=== PATIENT | male | born 1965 | race African-American/Black ===

== ENCOUNTER 2019-02-11 23:24 | Emergency (ER) | payer OTHER ==
[~2019-02-11] VITALS: Ht 182.9 cm; Wt 88.5 kg
[~2019-02-11 23:24] MED LIST: LISINOPRIL-HCT1 EAC1 PO
[2019-02-12 00:17] LABS: PLATELET COUNT 185 thou/uL (150-400)
[2019-02-12 00:19] LABS: ANION GAP 8 mmol/L (7-16); BUN 18 mg/dL (7-18); CHLORIDE 101 mmol/L (98-107); CO2 27 mmol/L (21-32); CREATININE 1.3 mg/dL (0.7-1.3); GLUCOSE 101 mg/dL (74-106); HEMATOCRIT 40.8 % (42.0-52.0); MCH 29.9 pg (26.0-34.0); MCHC 34.3 g/dL (28.0-37.0); MCV 87.2 fL (80.0-100.0); POTASSIUM 3.3 mmol/L (3.5-5.1); RBC 4.68 mil/uL (4.50-6.00); RDW 13.4 % (10.5-14.5); SODIUM 136 mmol/L (136-145)
[2019-02-12 00:29] LABS: ALBUMIN 4.1 g/dL (3.4-5.0); SGOT 41 U/L (15-37); SGPT 45 U/L (30-65); TOTAL BILIRUBIN 0.4 mg/dL (<0.1-1.0); TOTAL PROTEIN 7.6 g/dL (6.4-8.2); TROPONIN-I <0.06 ng/mL (<0.06)
[2019-02-12 00:54] LABS: MAGNESIUM 2.1 mg/dL (1.8-2.4)
[2019-02-12 01:02] LABS: ABSOLUTE NEUTROPHILS 1.1 thou/uL (1.4-8.2); ATYPICAL LYMPHS 16 %; LARGE PLATELETS OCCASIONAL
[2019-02-12] MEDS ORDERED: PRILOSEC 20 MG20 MG PO (01:29)
[2019-02-12 02:15] VITALS: BP 158/108
--- NOTE | 2019-02-12 10:38 | EKG ---
[facility] [employer] [place] [address] ELECTROCARDIOGRAM REPORT Name: TAURUSCELIA Room #: DEP Bryan#: [id number] ������������������ Admission: 02/11/19 ������������������ Attend Phys: Discharge: 02/12/19 ������������������ Date of : 65 Report #: [id number] ����������������������������������������������������������������� [id number] THIS REPORT FOR: //name// [facility] ED Test Date: 2019-02-11 Test Time: 23:37:36 Pat Name: CELIA CONDON Department: Room: Gender: M Labeling Specialist: SONI : 1965 Requested By: Xavier Jones Order Number: [id number] MD: Brett Reyna Measurements Intervals Stuart Rate: 52 P: 36 IL: 174 QRS: 40 QRSD: 93 T: 47 QT: 425 QTc: 396 Interpretive Statements Sinus rhythm Consider left ventricular hypertrophy ST elev, probable normal early repol pattern Compared to ECG 12/16/2012 19:59:24 Ventricular premature complex(es) no longer present ST (T wave) deviation still present Electronically Signed On 02-12-2019 10:37:47 CDT by Brett Reyna [email or web address] ��������������������������������������������� <ELECTRONICALLY SIGNED> ���������������������������������������� By: Brett Reyna MD ��������������������������������������������� 02/12/19 1037 36 Bertt Reyna MD /EPI
== END 2019-02-12 02:15 | disposition home or self-care (01) ==
LOC: ER 23:24
PROVIDERS: Emergency Medicine
DX: R07.89 Other chest pain (principal); R10.13 Epigastric pain; I10 Essential (primary) hypertension